=== PATIENT | female | born 1965 | race Caucasian/White ===

== ENCOUNTER 2019-04-25 12:56 | Outpatient (CLI) | payer OTHER, SELFPAY ==
--- NOTE | 2019-04-25 13:02 | MM_ITS ---
WS: [id number] BILATERAL DIGITAL SCREENING MAMMOGRAPHY WITH CAD CLINICAL INFORMATION: SCREENING HISTORY: Screening mammogram. No current complaints. COMPARISON: October 27, 2017 TECHNIQUE: Bilateral CC and MLO views. FINDINGS: Scattered fibroglandular densities bilaterally. No suspicious focal mass, asymmetry, calcifications, or architectural distortion. No evidence of malignancy. MM/[place] [id number] IMPRESSION: BI-RADS: 1-Negative FOLLOW UP: 1 Year Follow-up Recommend return to annual screening mammography.
== END 2019-04-25 12:57 | disposition home or self-care (01) ==
LOC: RADSHAW 13:01
PROVIDERS: PCP Family Medicine; Visit Provider Nurse Practitioner Women's Health
DX: Z12.31 Encounter for screening mammogram for malignant neoplasm of breast (principal)
CPT/HCPCS: 77067

== ENCOUNTER 2020-09-04 10:11 | Outpatient (CLI) | payer OTHER, SELFPAY ==
--- NOTE | 2020-09-04 10:15 | MM_ITS ---
WS: [id number] BILATERAL DIGITAL SCREENING MAMMOGRAPHY WITH CAD CLINICAL INFORMATION: Z12.39 - Encounter for other screening for malignant neop... HISTORY: Screening mammogram. No current complaints. COMPARISON: April 25, 2019 TECHNIQUE: Bilateral CC and MLO views. FINDINGS: Scattered fibroglandular densities bilaterally. No suspicious focal mass, asymmetry, calcifications, or architectural distortion. No evidence of malignancy. MM/[place] [id number] IMPRESSION: BI-RADS: 1-Negative FOLLOW UP: 1 Year Follow-up Recommend return to annual screening mammography.
== END 2020-09-04 10:12 | disposition home or self-care (01) ==
LOC: RADSHAW 10:14
PROVIDERS: PCP Family Medicine; Visit Provider Nurse Practitioner Women's Health
DX: Z12.31 Encounter for screening mammogram for malignant neoplasm of breast (principal)
CPT/HCPCS: 77067

== ENCOUNTER 2021-03-31 10:28 | Outpatient (CLI) | payer OTHER, SELFPAY ==
--- NOTE | 2021-03-31 10:34 | XR_ITS ---
WS: [id number] Calcaneus, 2 views, 03/31/2021 Clinical Data: HEEL PAIN, LEFT Comparison: None. Findings: There are no fractures or dislocations. There is no bone destruction or erosion. The soft tissues are normal. There is a plantar spur. XR/XR calcaneus LT min 2V [id number] Impression: Negative left calcaneus.
== END 2021-03-31 10:29 | disposition home or self-care (01) ==
PROVIDERS: PCP Family Medicine; Visit Provider Family Medicine
DX: M79.672 Pain in left foot (principal)
CPT/HCPCS: 73650

== ENCOUNTER 2021-05-22 10:46 | Observation (INO) | payer OTHER, SELFPAY ==
[2021-05-22] VITALS (8 sets, daily range): BP systolic 118–154; BP diastolic 68–93; PULSE 62–75; RESP 15–16; TEMP 36.8; O2SAT 96–99; BMI 29.2
--- NOTE | 2021-05-22 11:08 | XR_ITS ---
WS: [id number] XR chest 1V portable [id number] REASON FOR EXAM: chest pain FINDINGS: The heart and the mediastinum are within normal limits. Calcified granulomatous disease in both hemithoraces. No active pulmonary parenchymal or pleural disease is identified. Mild to moderate degenerative spondylosis in the mid and lower thoracic spine. XR/XR chest 1V portable [id number] IMPRESSION: No acute chest abnormality.
--- NOTE | 2021-05-22 11:09 | ECG_ITS ---
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 Measurements Intervals [place] Rate: 71 P: -9 TX: 134 QRS: -17 QRSD: 89 T: 8 QT: 386 QTc: 420 Interpretive Statements SINUS RHYTHM LEFT VENTRICULAR HYPERTROPHY AND ST-T CHANGE [VOLTAGE CRITERIA PLUS ST/T ABNORMALITY] No previous ECG available for comparison Electronically Signed On 05-22-2021 16:02:07 CDT by Bud Calabrese M.D. [id number]
--- NOTE | 2021-05-22 11:11 | W.ED.CHESTPA ---
HPI - Chest Pain General: Chief Complaint: Chest Pain Stated Complaint: chest pain/left side pain/high BP/nausea Time Seen by Provider: 05/22/21 11:11 History of Present Illness: Ms. Woodall is a 55-year-old lady without known cardiac history who presents to the emergency department due to chest pain. She reports sitting at work when symptoms started. 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 She describes pressure or dull pain in the left anterior chest that radiates to the back and on the left arm with left shoulder involvement. She had associated diaphoresis, nausea, and generalized malaise. Intensity of symptoms is moderate. Discomfort is still present. Course has persisted. She has had similar episodes in the past but they typically pass after an hour or so. She does have positive family history including father who at 52 and younger sibling who have had heart attacks. No other specific changes in health, exacerbating, or alleviating factors identified. Onset (ago): minute(s) Timing of current episode: constant Prior episodes: Yes Onset: during rest Pain location: left chest Pain radiation: left arm, back and left shoulder Severity: moderate Quality: dull and other Relieving factors: nothing Exacerbating factors: nothing Associated symptoms: Reports diaphoresis, dyspnea, nausea and other Review of Systems General: Reports: 10 or more systems reviewed and unremarkable except in HPI and below Const: Reports: diaphoresis Resp: Reports: dyspnea GI: Reports: nausea PFSH ED PFSH: Medical History Fibroadenoma of left breast IBS (irritable bowel syndrome) Never actually diagnosed with IBS the symptoms are somewhat consistent No pertinent past medical history Neg. hx: HTN, DM, DVT/PE PCP: Dr. Perez Thyroid nodule Confirmed nodule- benign/stable 09/2015 Surgical History History of appendectomy 1979 History of delivery 1.>06/20/84: Performed in [place], [place] 2.>05/06/87: Performed at [facility] in [place], [place] 3.>08/08/89: Had tubal ligation at time of . Performed at [facility] in [place], [place] History of laparoscopy 1999 - Performed by Dr. Castañeda for evaluation of pelvic pain History of tubal ligation 08/08/89 - Performed at time of section. Family History Grandfather CAD (coronary artery disease) Diabetes Stroke Father CAD (coronary artery disease) Brother CAD (coronary artery disease) Myocardial infarction Stroke Mother Cancer Breast cancer: Dx'd at age 54, unsure if hormone receptive Ovarian cancer: Dx'd at age 29. Family/Other Cancer Maternal uncle: Colon cancer Stroke Uncle and Aunt Grandmother Diabetes Stroke Denies family history of Clotting disorder Dementia Hyperlipidemia Psychiatric illness Chronic kidney disease (CKD) Suicide Anesthesia complication Bleeding disorder Family history of premature coronary artery disease Lung disease Hypertension Social History Smoking and tobacco status: never smoked Alcohol intake: current Alcohol intake frequency: few times a week Substance/Drug Use: never Physical Exam Const: COMMON NORMALS: alert GENERAL APPEARANCE: cooperative, well developed and ill appearing (Mildly) HENMT: COMMON NORMALS: normocephalic and atraumatic HEAD & SCALP: normocephalic and atraumatic Eye: COMMON NORMALS: conjunctivae normal CONJUNCTIVA: Yes conjunctivae normal SCLERA: sclerae normal Neck/C-Spine: COMMON NORMALS: supple GENERAL: Yes trachea midline Resp: COMMON NORMALS: normal respiratory effort EFFORT & INSPECTION: Yes able to speak in complete sentences Cardio: COMMON NORMALS: regular rate and regular rhythm RATE: regular rate RHYTHM: regular rhythm GI: COMMON NORMALS: Soft to palpation PALPATION: Yes Soft to palpation and No Tenderness to palpation present (GI) PERCUSSION: normal to percussion Extremity: GENERAL: Yes normal exam except as noted and No edema Neuro: COMMON NORMALS: moves all extremities SENSORIUM/ORIENTATION: Yes alert and No Orientation impaired Psych: COMMON NORMALS: mental status grossly normal and Normal thought process present THOUGHT PROCESS: Normal thought process present Course ED course: - Patient was seen and evaluated by me at bedside - Patient placed on cardiac monitors, IV access obtained - Initial evaluation notable for exam as above - Labs and xrays personally interpreted by me. EKGs at 1115, 1304, and 1709 personally interpreted by me. Sinus rhythm with nonspecific ST segment abnormalities. No STEMI. -Aspirin, antiemetic, other symptom treatment and fluids ordered. - Labs notable for no leukocytosis, normal hemoglobin. Metabolic panel with mild hyponatremia and hypokalemia, replenishment ordered. Delta troponin negative. - Imaging notable for no lobar consolidation or pneumothorax. - Upon serial reexamination after treatment the patient was similar. - Based on patient history, evaluation, and testing as interpreted the most likely cause of the patient's condition is chest pain and other symptoms of unclear etiology. - The results of ED evaluation were discussed with the patient including possible disposition options. Patient is moderate risk by heart score with concerning family history. She preferred inpatient evaluation even after discussion of possibility of no stress test on Tuesday. - Admitting service was contacted and Dr Foote with the hospitalist service agreed to admit the patient - Patient was admitted without further deterioration or significant events. Note: Click bubbles or prepopulated sifuentes in note writing are used for assistance with data collection and billing and are inherently more limited than narrative and other text portions of this note. Please use narrative for additional clinical history and defer to narrative/free test for any case of contradictory information. If information appears in only free text or click bubble it should be considered present or absent as reported. Please contact note resume writer for clarifications of clinical information or contradictory information. MDM is a brief summary, contradictory or erroneous seeming information should be clarified and full note should be reviewed. Vital Signs: Vital signs: Vital Signs Temperature 97.6 F 05/23/21 07:26 Pulse Rate 70 05/23/21 07:26 Respiratory Rate 18 05/23/21 07:26 Blood Pressure 118/70 05/23/21 07:26 Pulse Oximetry 96 05/23/21 07:26 MDM - Chest Pain Medical Decision Making 55-year-old lady with significant positive family history for cardiac disease and early cardiac presenting with chest pain and episodic associated cardiac symptoms. Negative troponin and EKG in the emergency department. No clear explanation for symptoms. Patient moderate risk by heart score and offered various disposition options, admitted for further cardiac evaluation. Medical Records I reviewed the patient's medical records. Lab Data I reviewed the patient's lab results. : 05/23/21 05:05 05/23/21 05:05 Radiology Impressions Chest X-Ray 05/22/21 11:08 IMPRESSION: No acute chest abnormality. Laboratory Results WBC 7.0 10^3/uL (4.0-10.0) 05/22/21 11:19 RBC 4.62 10^6/uL (4.1-5.3) 05/22/21 11:19 Hgb 14.0 g/dL (11.5-15.3) 05/22/21 11:19 Hct 42.0 % (37.0-47.0) 05/22/21 11:19 MCV 90.9 fl (81-99) 05/22/21 11:19 MCH 30.3 pg (28.0-34.0) 05/22/21 11:19 MCHC 33.3 g/dL (30.0-36.0) 05/22/21 11:19 RDW 13.4 % (12.1-15.1) 05/22/21 11:19 Plt Count 289 10^3/cmm (130-400) 05/22/21 11:19 MPV 9.0 fL (7.4-10.4) 05/22/21 11:19 Neut % (Auto) 49.9 % 05/22/21 11:19 Lymph % (Auto) 39.0 % 05/22/21 11:19 Hubbard % (Auto) 8.1 % 05/22/21 11:19 Eos % (Auto) 1.9 % 05/22/21 11:19 Baso % (Auto) 0.7 % 05/22/21 11:19 Neut # (Auto) 3.50 10^3/uL (1.8-7.7) 05/22/21 11:19 Lymph # (Auto) 2.7 10^3/uL (0.8-4.8) 05/22/21 11:19 Hubbard # (Auto) 0.6 10^3/uL (0.2-0.9) 05/22/21 11:19 Eos # (Auto) 0.1 10^3/uL (0.0-0.8) 05/22/21 11:19 Baso # (Auto) 0.1 10^3/uL (0.0-0.1) 05/22/21 11:19 Nucleated RBC % (auto) 0 % 05/22/21 11:19 Nucleated RBCs # 0.0 /100WBC 05/22/21 11:19 Sodium 133 mmol/L (136-145) L 05/22/21 11:19 Potassium 3.3 mmol/L (3.5-5.1) L 05/22/21 11:19 Chloride 98 mmol/L (98-107) 05/22/21 11:19 Carbon Dioxide 24 mmol/L (22-29) 05/22/21 11:19 Anion Gap 14.3 (5-19) 05/22/21 11:19 BUN 16 mg/dL (6-20) 05/22/21 11:19 Creatinine 0.6 mg/dL (0.5-0.9) 05/22/21 11:19 GFR Calculation 104.2 mL/min (90-130) 05/22/21 11:19 Glucose 100 mg/dL (65-115) 05/22/21 11:19 Estimat Average Glucose 123 05/22/21 11:19 Hemoglobin A1c 5.9 % (4.0-6.0) 05/22/21 11:19 Calculated Osmolality 277 mOsm/kg (285-295) L 05/22/21 11:19 Calcium 9.9 mg/dL (8.5-10.5) 05/22/21 11:19 Magnesium 2.2 mg/dL (1.7-2.3) 05/22/21 11:19 Total Bilirubin 0.4 mg/dL (0.15-1.2) 05/22/21 11:19 AST 26 U/L (0-32) 05/22/21 11:19 ALT 14 U/L (0-33) 05/22/21 11:19 Alkaline Phosphatase 76 IU/L (35-105) 05/22/21 11:19 Troponin T Baseline 6 ng/L (0-10) 05/22/21 11:19 Troponin T 120 Minute 6.76 ng/L (0-10) 05/22/21 13:07 Delta Troponin T 0.76 ABS# (0-10) 05/22/21 13:07 Troponin T Hi Sens 6Hr 6.76 ng/L (0-10) 05/22/21 15:47 Troponin T Hi Sens 6Hr Delta 0.76 ng/L (0-12) 05/22/21 15:47 Total Protein 8.7 g/dL (6.6-8.7) 05/22/21 11:19 Albumin 5.0 g/dL (3.5-5.2) 05/22/21 11:19 Globulin 3.7 g/dL (1.3-4.6) 05/22/21 11:19 Lipase 19 U/L (13-60) 05/22/21 11:19 TSH 2.40 uIU/mL (0.27-4.20) 05/22/21 11:19 Discharge Plan Discharge Patient Disposition: Placed in Observation Admit Provider: Giovanni Foote Clinical Impression: Chest pain Discharge Activity: Resume usual activity Coding Level of Care Code ED Superintendent [employer] for Chg Fwd Exam Comprehensive
[2021-05-22] MEDS: aspirin 81 mg Chew Tablet 324 MG PO (11:14)
[2021-05-22] MEDS: ondansetron 2 mg/ML SDV 2 mL 4 MG IVP (11:14)
[2021-05-22 11:30] LABS: Basophils # 0.1 10^3/uL (0.0-0.1); Basophils % 0.7 %; Eosinophils # 0.1 10^3/uL (0.0-0.8); Eosinophils % 1.9 %; Lymphocytes # 2.7 10^3/uL (0.8-4.8); Mean Corpuscular HGB Conc 33.3 g/dL (30.0-36.0); Mean Corpuscular Hemoglobin 30.3 pg (28.0-34.0); Mean Corpuscular Volume 90.9 fl (81-99); Monocytes # 0.6 10^3/uL (0.2-0.9); Monocytes % 8.1 %; Neutrophils % 49.9 %; Nucleated Red Blood Cells % 0 %; Platelet Count 289 10^3/cmm (130-400); Red Blood Count 4.62 10^6/uL (4.1-5.3); Red Cell Distribution Width 13.4 % (12.1-15.1)
[2021-05-22 11:54] LABS: Troponin(5th) Baseline 6 ng/L (0-10)
[2021-05-22 12:02] LABS: Alanine Aminotransferase 14 U/L (0-33); Alkaline Phosphatase 76 IU/L (35-105); Anion Gap 14.3 (5-19); Aspartate Amino Transferase 26 U/L (0-32); Blood Urea Nitrogen 16 mg/dL (6-20); Calcium 9.9 mg/dL (8.5-10.5); Carbon Dioxide 24 mmol/L (22-29); Chloride 98 mmol/L (98-107); Globulin 3.7 g/dL (1.3-4.6); Glomerular Filtration Rate 104.2 mL/min (90-130); Glucose 100 mg/dL (65-115); Lipase 19 U/L (13-60); Osmolality Calculated 277 mOsm/kg (285-295); Potassium 3.3 mmol/L (3.5-5.1); Sodium 133 mmol/L (136-145); Total Bilirubin 0.4 mg/dL (0.15-1.2); Total Protein 8.7 g/dL (6.6-8.7)
[2021-05-22] MEDS: lidocaine 2% viscous 15 ML, aluminum-mag hydrox-simethicon 30 ML, sucralfate oral liq 1 GM PO (12:03)
[2021-05-22 12:35] LABS: Magnesium 2.2 mg/dL (1.7-2.3)
[2021-05-22] MEDS: potassium chloride oral liq 20 mEq/15 mL UDC 40 MEQ PO (12:35)
[2021-05-22] MEDS: sodium chloride 0.9% 1,000 ML 999 ML IV (12:52)
--- NOTE | 2021-05-22 13:09 | ECG_ITS ---
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 Measurements Intervals [place] Rate: 63 P: 59 VA: 137 QRS: 79 QRSD: 86 T: 64 QT: 396 QTc: 408 Interpretive Statements SINUS RHYTHM Compared to ECG 05/22/2021 11:15:30 Left ventricular hypertrophy no longer present ST (T wave) deviation no longer present Electronically Signed On 05-22-2021 16:06:00 CDT by Bud Calabrese M.D. [id number]
[2021-05-22 13:31] LABS: Troponin 5 2HR 6.76 ng/L (0-10)
[2021-05-22 13:39] LABS: Troponin 5 2HR Delta 0.76 ABS# (0-10)
[2021-05-22 16:17] LABS: Troponin 5 6HR 6.76 ng/L (0-10)
[2021-05-22 16:27] LABS: Troponin 5 6HR Delta 0.76 ng/L (0-12)
--- NOTE | 2021-05-22 17:09 | ECG_ITS ---
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 Measurements Intervals [place] Rate: 78 P: 71 TX: 138 QRS: 79 QRSD: 86 T: 69 QT: 386 QTc: 440 Interpretive Statements SINUS RHYTHM NONSPECIFIC ST & T-WAVE ABNORMALITY Compared to ECG 05/22/2021 13:04:10 T-wave abnormality now present Electronically Signed On 05-22-2021 22:43:25 CDT by uBd Calabrese M.D. [id number]
--- NOTE | 2021-05-22 17:53 | P.HP_ITS ---
Providers/Chief Complaint Admitting Physician: Giovanni Foote MD Primary Care Provider: Riccardo Perez MD Chief Complaint: chest pain/left side pain/high BP/nausea History of Present Illness Trang Woodall is a 55 year old female with a past medical history of anxiety, who presents [facility] for chest pain. Patient tells me that she has had a few months of progressive chest pain, worsening intensity, becoming more frequent. Chest pain is typically left-sided, substernal, pressure-like pain, lasting a few seconds, radiating to the left neck, down the left arm, a ssociate with palpitations, diaphoresis. No shortness of breath, no cardiac history. Does have an extensive family history of CAD in her brother in his 50s and her father who in his 50s with CAD. In the emergency room she was found to have no significant delta on home clonidine, EKG did show subtle T wave versions in inferior leads. No recurrent chest pain in the emergency room, hospitalist team was called for admission Review of Systems Const: Denies: fever(s), chills, fatigue or malaise Eyes: Denies: change in vision or blurry vision ENMT: Denies: nasal congestion Resp: Denies: dyspnea, productive cough, non-productive cough or wheezing GI: Denies: abdominal pain, nausea, vomiting, hematemesis or diarrhea : Denies: flank pain, dysuria or urinary frequency Musc: Denies: neck pain or back pain Skin/Breast: Denies: rash Neuro: Denies: headache(s), dizziness or vertigo Endo: Denies: polyuria or polydipsia Medications/Allergies Home Medications Medication Instructions Recorded Confirmed Last Taken Type acidophilus 100 million 1 cap PO DAILY 05/22/21 05/22/21 Unknown History cell-pectin, citrus 10 mg capsule alprazolam 0.25 mg tablet 0.25 mg PO BID PRN 05/22/21 05/22/21 Unknown History biotin 1 tab PO DAILY 05/22/21 05/22/21 Unknown History cholecalciferol (vitamin D3) 25 25 mcg PO DAILY 05/22/21 05/22/21 Unknown History mcg (1,000 unit) capsule (Vitamin D3) magnesium citrate 1 cap PO DAILY 05/22/21 05/22/21 Unknown History ondansetron HCl 4 mg tablet 4 mg PO Q4H PRN 05/22/21 05/22/21 Unknown History Allergies Allergy/AdvReac Type Severity Reaction Status Date / Time meperidine [From Demerol] Allergy vomiting Verified 05/22/21 11:35 Penicillins Allergy Thick Verified 05/22/21 11:35 peeling rash PFSH Acute PFSH: Medical History Fibroadenoma of left breast IBS (irritable bowel syndrome) Never actually diagnosed with IBS the symptoms are somewhat consistent No pertinent past medical history Neg. hx: HTN, DM, DVT/PE PCP: Dr. Perez Thyroid nodule Confirmed nodule- benign/stable 09/2015 Surgical History History of appendectomy 1979 History of delivery 1.>06/20/84: Performed in [place], [place] 2.>05/06/87: Performed at [facility] in [place], [place] 3.>08/08/89: Had tubal ligation at time of . Performed at [facility] [place] [facility] in [place], [place] History of laparoscopy 1999 - Performed by Dr. Castañeda for evaluation of pelvic pain History of tubal ligation 08/08/89 - Performed at time of section. Family History Grandfather CAD (coronary artery disease) Diabetes Stroke Father CAD (coronary artery disease) Brother CAD (coronary artery disease) Myocardial infarction Stroke Mother Cancer Breast cancer: Dx'd at age 54, unsure if hormone receptive Ovarian cancer: Dx'd at age 29. Family/Other Cancer Maternal uncle: Colon cancer Stroke Uncle and Aunt Grandmother Diabetes Stroke Denies family history of Clotting disorder Dementia Hyperlipidemia Psychiatric illness Chronic kidney disease (CKD) Suicide Anesthesia complication Bleeding disorder Family history of premature coronary artery disease Lung disease Hypertension Social History (Updated 05/22/21 @ 17:55 by Giovanni Foote MD) Smoking and tobacco status: never smoked Alcohol intake: current Alcohol intake frequency: few times a week Substance/Drug Use: never Vitals/I&O/Wt Last Vital Signs Temp 98.3 F 05/22/21 11:00 Pulse 62 05/22/21 13:56 Resp 15 05/22/21 13:56 BP 119/76 05/22/21 13:56 Pulse Ox 97 05/22/21 13:56 Weight last 48 hrs Weight 72.575 kg Physical Exam Const: COMMON NORMALS: no acute distress and patient oriented x3 HENMT: COMMON NORMALS: normocephalic HEAD & SCALP: normocephalic Eye: COMMON NORMALS: Equal, round and reactive pupils present Neck/C-Spine: COMMON NORMALS: no JVD Lymph: LYMPHATIC: no lymphadenopathy noted Resp: COMMON NORMALS: normal respiratory effort, No retractions, No use of accessory muscles and clear to auscultation bilaterally AUSCULTATION: clear to auscultation bilaterally Cardio: COMMON NORMALS: no JVD, regular rate, regular rhythm, S1 normal heart sound present and S2 normal heart sound present RATE: regular rate RHYTHM: regular rhythm HEART SOUNDS: S1 normal heart sound present and S2 normal heart sound present GI: COMMON NORMALS: Normal to inspection, nondistended, normoactive bowel sounds present, Soft to palpation, non-tender, No hepatosplenomegaly present, no masses and no bruits PALPATION: Yes Soft to palpation and Yes No hepatosplenomegaly present Extremity: COMMON NORMALS: capillary refill normal, no clubbing, cyanosis or edema, no calf tenderness and no pedal edema Neuro: COMMON NORMALS: patient oriented x3 Psych: COMMON NORMALS: mental status grossly normal Data : 05/22/21 11:19 05/22/21 11:19 A&P Assessment and plan (1) Chest pain: -EKG does show T wave inversions inferior leads, no significant delta troponin -Lipid panel ordered -TSH within normal limits, A1c ordered mag within normal limits -Telemetry monitoring -Cardiac echo -Aspirin, statin -Nitro as needed for chest pain -We will consider outpatient was inpatient stress testing -Full code -Lovenox for DVT prophylaxis Status: Acute Attestations Medical Necessity Statement*: Patient requires hospitalization, outpatient with observation for chest pain Coding Level of Care Code Acute Wood Heel Back Liner for Sfoi Mercado Diagnoses Chest pain R07.9
--- NOTE | 2021-05-22 17:53 | USCV_ITS ---
Trang Woodall Age: 55 Gender: F : 1965 Exam Date: 05/22/2021 21:34 Ordering Phys: Giovanni Foote MD Technologist: Jude Good Exam Location: [facility] Indication: chest pain/ left side pain/ high bp/ nausea BP: 118 / 68 HR: 65 Rhythm: Sinus Technical Quality: Adequate MEASUREMENTS (Male / Female) Normal Values 2D ECHO LV Diastolic Diameter PLAX 3.1 cm 4.2 - 5.9 / 3.9 - 5.3 cm LV Systolic Diameter PLAX 1.6 cm IVS Diastolic Thickness 1.8 cm 0.6 - 1.0 / 0.6 - 0.9 cm IVS Systolic Thickness 1.7 cm LVPW Diastolic Thickness 1.5 cm 0.6 - 1.0 / 0.6 - 0.9 cm LVPW Systolic Thickness 2.2 cm LVOT Diameter 2.0 cm LV Ejection Fraction 2D Teich 76.1 % LV Ejection Fraction MOD 2C 65.8 % LV Ejection Fraction 2C AL 68.7 % LA Diameter 2.3 cm LA Width 3.1 cm LA Height 3.6 cm Aorta at Sinotubular Diameter 2.4 cm M-MODE Aortic Annulus Diameter 2.7 cm LA Ao Ratio MM 0.8 MV E Point Septal Separation 0.6 cm DOPPLER AV Peak Velocity 106.0 cm/s LVOT Peak Velocity 71.0 cm/s AV Area Cont Eq vti 2.9 cm squared AV Area Cont Eq pk 2.1 cm squared MV Area PHT 2.5 cm squared Mitral E to A Ratio 2.1 MV E' Velocity 66.5 cm/s Mitral E to MV E' Ratio 8.9 Mitral E to LV E' Lateral Ratio 7.5 Mitral E to LV E' Septal Ratio 11.0 TR Peak Velocity 91.6 cm/s TR Peak Gradient 3.4 mmHg TR Mean Velocity 59.4 cm/s TR Mean Gradient 1.6 mmHg TR Velocity Time Integral 19.1 cm Right Atrial Pressure 3.0 mmHg Pulmonary Artery Systolic Pressu 6.4 mmHg PV Peak Velocity 77.0 cm/s FINDINGS Left Ventricle Normal left ventricular size and systolic function, EF 66 %. No regional wall motion abnormalities. Right Ventricle The right ventricle is normal in size and function. Right Atrium The right atrium is normal in size. Left Atrium The left atrium is normal in size. Mitral Valve Thickened mitral valve. Trace mitral valve regurgitation. Aortic Valve No gross abnormalities noted Tricuspid Valve No gross abnormalities noted Pulmonic Valve Pulmonic valve not well visualized. Pericardium Normal pericardium without effusion. Aorta Normal ascending aorta dimension. CONCLUSIONS Normal left ventricular size and systolic function, EF 66 %. No regional wall motion abnormalities. Thickened mitral valve. Trace mitral valve regurgitation. Normal cardiac chamber sizes There is no pericardial effusion. There are no intracardiac masses. No similar previous study is available for comparison. Dr Marie Zapata MD FAC (Electronically Signed) Final Date: 23 May 2021 10:44 S
[2021-05-22] MEDS: famotidine 20 mg Tablet PO (18:24)
[2021-05-22] MEDS: enoxaparin 40 mg/0.4 mL Syringe SUBCUT (18:24)
[2021-05-22 19:57] LABS: Estmated Average Glucose 123; Hemoglobin A1C 5.9 % (4.0-6.0)
[2021-05-22] MEDS: atorvastatin 40 mg Tablet PO (20:14)
[2021-05-23] VITALS: BP 100/61; PULSE 63; RESP 17; TEMP 36.4; O2SAT 96
[2021-05-23 03:51] VITALS: PULSE 62
[2021-05-23 04:00] VITALS: BP 100/67; PULSE 69; RESP 18; TEMP 36.5; O2SAT 98
[2021-05-23] MEDS: acetaminophen 325 mg Tablet 650 MG PO (04:10)
[2021-05-23 05:20] LABS: Basophils % 0.6 %; Eosinophils # 0.2 10^3/uL (0.0-0.8); Eosinophils % 3.1 %; Hematocrit 36.9 % (37.0-47.0); Hemoglobin 12.3 g/dL (11.5-15.3); Lymphocytes # 2.1 10^3/uL (0.8-4.8); Lymphocytes % 41.3 %; Mean Corpuscular HGB Conc 33.3 g/dL (30.0-36.0); Mean Corpuscular Hemoglobin 30.6 pg (28.0-34.0); Mean Corpuscular Volume 91.8 fl (81-99); Monocytes # 0.5 10^3/uL (0.2-0.9); Neutrophils # 2.33 10^3/uL (1.8-7.7); Neutrophils % 45.8 %; Nucleated Red Blood Cells % 0 %; Platelet Count 248 10^3/cmm (130-400); Red Blood Count 4.02 10^6/uL (4.1-5.3); Red Cell Distribution Width 13.6 % (12.1-15.1); White Blood Count 5.1 10^3/uL (4.0-10.0)
[2021-05-23 05:42] LABS: Alanine Aminotransferase 11 U/L (0-33); Alkaline Phosphatase 63 IU/L (35-105); Anion Gap 11.4 (5-19); Aspartate Amino Transferase 19 U/L (0-32); Blood Urea Nitrogen 14 mg/dL (6-20); Calcium 9.1 mg/dL (8.5-10.5); Carbon Dioxide 24 mmol/L (22-29); Chloride 104 mmol/L (98-107); Globulin 2.5 g/dL (1.3-4.6); Glomerular Filtration Rate 87.2 mL/min (90-130); Glucose 111 mg/dL (65-115); Magnesium 2.4 mg/dL (1.7-2.3); Osmolality Calculated 281 mOsm/kg (285-295); Phosphorus 3.8 mg/dL (2.5-4.5); Potassium 4.4 mmol/L (3.5-5.1); Sodium 135 mmol/L (136-145); Total Bilirubin 0.4 mg/dL (0.15-1.2); Total Protein 6.5 g/dL (6.6-8.7)
[2021-05-23 05:44] LABS: Chol HDL Ratio 3.15 mg/dL (0.0-4.40); Cholesterol 186 mg/dL (0-200); HDL Cholesterol 59 mg/dL (60-100); LDL Cholesterol Calculated 117 mg/dL (50-129); LDL HDL Ratio 1.98 RATIO (0.00-3.22); Triglycerides 49 mg/dL (0-150)
[2021-05-23 07:26] VITALS: BP 118/70; PULSE 70; RESP 18; TEMP 36.4; O2SAT 96
[2021-05-23] MEDS: aspirin 81 mg EC Tablet PO (07:55)
--- NOTE | 2021-05-23 09:41 | P.PN_ITS ---
Subjective Subjective: Patient was seen this morning, she continued to complain of anterior chest pain this morning, pressure-like pain, she also had pain radiating to her back, no nausea, no vomiting Vitals/I&O/Wt Last Vital Signs Temp 97.6 F 05/23/21 07:26 Pulse 70 05/23/21 07:26 Resp 18 05/23/21 07:26 BP 118/70 05/23/21 07:26 Pulse Ox 96 05/23/21 07:26 05/22/21 05/23/21 05/23/21 22:59 06:59 14:59 Intake Total 1240 / 1240 900 / 2140 Output Total 0 / 0 Balance 1240 / 1240 900 / 2140 Weight last 48 hrs Weight 73.936 kg Weight 72.575 kg Weight 72.575 kg Physical Exam Const: COMMON NORMALS: no acute distress and patient oriented x3 Resp: COMMON NORMALS: normal respiratory effort, No retractions, No use of accessory muscles and clear to auscultation bilaterally AUSCULTATION: clear to auscultation bilaterally Cardio: COMMON NORMALS: regular rate, regular rhythm, S1 normal heart sound present and S2 normal heart sound present RATE: regular rate RHYTHM: regular rhythm HEART SOUNDS: S1 normal heart sound present and S2 normal heart sound present GI: COMMON NORMALS: Normal to inspection, nondistended, normoactive bowel sounds present, Soft to palpation, non-tender and No hepatosplenomegaly present PALPATION: Yes Soft to palpation and Yes No hepatosplenomegaly present Extremity: COMMON NORMALS: no pedal edema Neuro: COMMON NORMALS: patient oriented x3 Psych: COMMON NORMALS: mental status grossly normal Data : 05/23/21 05:05 05/23/21 05:05 A&P Assessment and plan (1) Chest pain: -Episodes of chest pain overnight -EKG does show T wave inversions inferior leads, no significant delta troponin -Lipid panel triglycerides 49, cholesterol 186, LDL 117, HDL 59 -TSH within normal limits, A1c 5.9, mag within normal limits -Telemetry monitoring -Cardiac echo pending -Aspirin, statin -Nitro as needed for chest pain -We will discuss with cardiology service -Full code -Lovenox for DVT prophylaxis Status: Acute Attestations Medical Necessity Statement*: Patient requires hospitalization for chest pain Coding Level of Care Code Acute Assistant Press Operator for Chg Fwd Diagnoses Chest pain R07.9
--- NOTE | 2021-05-23 10:10 | P.CONIM_ITS ---
Providers/Reason For Consult Consulting Physician/Specialty*: DR SANTIAGO SANCHEZ/ Cardiology Reason for Consult*: Chest pain/family history of coronary artery disease Requesting Physician: Dr Foote Attending Physician: Giovanni Foote MD Primary Care Provider: Riccardo Perez MD History of Present Illness History of Present Illness Trang Woodall is a 55 year old female, with no significant past medical history, but with a strong family history for premature atherosclerotic heart disease is presenting with complaints of chest pain and palpitations. Cardiology consult is requested for further cardiac evaluation recommendations. 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 This was followed by a tight feeling in the chest, radiated to the back, to the neck and to the left shoulder. She felt nauseous, sweaty and somewhat short of breath. She had 1 bout of vomiting. Her chest discomfort and palpitation persisted with some waxing and waning. The symptom was moderate to severe in intensity. She also gets tunnel vision with these spells. Patient apparently has been having several episodes intermittently for the last 4 years or so. However for the last few months, these episodes becoming more frequent and more severe. Yesterday her symptoms were lasting longer than usual and also was found to be associated with an elevated blood pressure in the 170s(apparently she never had high blood pressure. Yesterday was the first time that she checked her blood pressure while having the symptoms). For these reasons, she was brought to the emergency room. Her symptoms gradually subsided. Since the hospital admission, she has not had any recurrence of the symptoms. Usually these episodes last for 2 to 3 hours. This is followed by extreme weakness. According the patient, almost always she starts having the palpitations, followed by chest pain/tightness. The patient seems to think that the symptoms could be related to anxiety/panic attacks. She has been under a lot of stress at home taking care of her sister's children. She takes Zofran for the nausea as prescribed by the primary care provider. Otherwise she has not been taking her medications. Yesterday she was at work and her friend insisted her to go to the hospital. Patient has no history for coronary artery disease, myocardial infarction or congestive heart failure. Her brother in his 40s heart had heart attack and stroke. He also is known to have atrial fibrillation. Her father of a massive CO at age of 52. Many of maternal uncles had heart problems in the 60s. Her grandfather had a heart attack at the age of 64. No history for any smoking abuse, alcohol abuse or any substance abuse. Review of Systems Narrative: CONSTITUTIONAL: No fever or chills. Undergoing a lot of stress at home. EYES: No blurring of vision or other visual disturbances lately. ENT: No hoarseness of voice, auditory disturbances or sore throat. CARDIOVASCULAR: As mentioned above. RESPIRATORY: No significant cough. GASTROINTESTINAL: No hematemesis or melena. Is also nausea and stomach discomfort as mentioned above GENITOURINARY: No dysuria or hematuria. INTEGUMENTARY: No skin rashes or history of skin cancer. NEURO: No transient ischemic attacks or amaurosis. She gets tunnel vision/dizziness with these spells PSYCHIATRIC: No history of psychosis or major depression. HEMATOLOGIC: No bleeding disorders or significant anemia. ENDOCRINE: No history of polyuria or polydipsia. MUSCULOSKELETAL: No recent joint pain or swelling. ALLERGY/IMMUNOLOGY: As mentioned above. Medications/Allergies Home Medications Medication Instructions Recorded Confirmed Last Taken Type acidophilus 100 million 1 cap PO DAILY 05/22/21 05/22/21 Unknown History cell-pectin, citrus 10 mg capsule alprazolam 0.25 mg tablet 0.25 mg PO BID PRN 05/22/21 05/22/21 Unknown History biotin 1 tab PO DAILY 05/22/21 05/22/21 Unknown History cholecalciferol (vitamin D3) 25 25 mcg PO DAILY 05/22/21 05/22/21 Unknown History mcg (1,000 unit) capsule (Vitamin D3) magnesium citrate 1 cap PO DAILY 05/22/21 05/22/21 Unknown History ondansetron HCl 4 mg tablet 4 mg PO Q4H PRN 05/22/21 05/22/21 Unknown History aspirin 81 mg tablet,delayed 81 mg PO DAILY 30 Days #30 tab 05/23/21 Unknown Rx release atorvastatin 40 mg tablet 40 mg PO BEDTIME 30 Days #30 tab 05/23/21 Unknown Rx nitroglycerin 0.4 mg sublingual 0.4 mg SUBLINGUAL Q5M PRN 30 Days 05/23/21 Unknown Rx tablet #30 tab Allergies Allergy/AdvReac Type Severity Reaction Status Date / Time meperidine [From Demerol] Allergy vomiting Verified 05/22/21 11:35 Penicillins Allergy Thick Verified 05/22/21 11:35 peeling rash Current Medications Generic Name Dose Route Start Last Admin Trade Name Freq PRN Reason Stop Dose Admin Acetaminophen 650 mg 05/22/21 17:53 05/23/21 04:10 Acetaminophen 325 Mg Tablet PO 650 mg Q6H PRN Administration Mild/Mod Pain Or Temp >/= 101 Aspirin 81 mg 05/23/21 09:00 05/23/21 07:55 Aspirin 81 Mg Ec Tablet PO 81 mg DAILY PILY Administration Atorvastatin Calcium 40 mg 05/22/21 21:00 05/22/21 20:14 Atorvastatin 40 Mg Tablet PO 40 mg BEDTIME PILY Administration Enoxaparin Sodium 40 mg 05/22/21 18:00 05/22/21 18:24 Enoxaparin 40 Mg/0.4 Ml Syringe SUBCUT 40 mg Q24H PILY Administration Famotidine 20 mg 05/22/21 18:00 05/23/21 07:55 Famotidine 20 Mg Tablet PO Not Given BID PILY Vitamin D 1,000 unit 05/23/21 09:00 05/23/21 07:55 Cholecalciferol (Vitamin D3) 1,000 Unit Tablet PO Not Given DAILY PILY PFSH Acute PFSH: Medical History Fibroadenoma of left breast IBS (irritable bowel syndrome) Never actually diagnosed with IBS the symptoms are somewhat consistent No pertinent past medical history Neg. hx: HTN, DM, DVT/PE PCP: Dr. Perez Thyroid nodule Confirmed nodule- benign/stable 09/2015 Surgical History History of appendectomy 1979 History of delivery 1.>06/20/84: Performed in [place], [place] 2.>05/06/87: Performed at [facility] in [place], [place] 3.>08/08/89: Had tubal ligation at time of . Performed at [facility] in [place], [place] History of laparoscopy 1999 - Performed by Dr. Castañeda for evaluation of pelvic pain History of tubal ligation 08/08/89 - Performed at time of section. Family History Grandfather CAD (coronary artery disease) Diabetes Stroke Father CAD (coronary artery disease) Brother CAD (coronary artery disease) Myocardial infarction Stroke Mother Cancer Breast cancer: Dx'd at age 54, unsure if hormone receptive Ovarian cancer: Dx'd at age 29. Family/Other Cancer Maternal uncle: Colon cancer Stroke Uncle and Aunt Grandmother Diabetes Stroke Denies family history of Clotting disorder Dementia Hyperlipidemia Psychiatric illness Chronic kidney disease (CKD) Suicide Anesthesia complication Bleeding disorder Family history of premature coronary artery disease Lung disease Hypertension Social History Smoking and tobacco status: never smoked Alcohol intake: current Alcohol intake frequency: few times a week Substance/Drug Use: never Vitals/I&O/Wt Last Vital Signs Temp 97.6 F 05/23/21 07:26 Pulse 70 05/23/21 07:26 Resp 18 05/23/21 07:26 BP 118/70 05/23/21 07:26 Pulse Ox 96 05/23/21 07:26 05/22/21 05/23/21 05/23/21 22:59 06:59 14:59 Intake Total 1240 / 1240 900 / 2140 Output Total 0 / 0 Balance 1240 / 1240 900 / 2140 Weight last 48 hrs Weight 163 lb Weight 160 lb Weight 160 lb Physical Exam Narrative: GENERAL: The patient is alert and oriented times three. Not in any acute distress. HEENT: No significant pallor, icterus or lymphadenopathy. The pupils are reactant to light. Oral cavity: There are no mucous membrane lesions. Funduscopic examination: The fundus is not visualized NECK: Trachea appears to be central. No masses noted. No JVD or thyromegaly appreciated. No carotid bruit. RESPIRATORY: Chest is symmetrical. No intercostals muscle retraction or any accessory muscle activation. There is no chest wall tenderness. Breath sounds are heard bilaterally. No rales or rhonchi heard. No evidence of any consolidation. BREASTS: Deferred. HEART: The PMI could not be palpated. No palpable precordial events. S1 and S2 are normal. No S3 or S4 heard. No pericardial rub or any click heard. ABDOMEN: No vessel pulsations or distention. No tenderness. No organomegaly appreciated. No abdominal bruit. Bowel sounds are normally heard. : Deferred. RECTAL: Deferred. LYMPHATIC: No lymphadenopathy noted in the neck or groin. EXTREMITIES: No edema or cyanosis. No clubbing. The pulses are symmetrical bilaterally. The radial, femoral, dorsalis pedis and the posterior tibial pulses are palpated and found to be in good volume and amplitude. MUSCULOSKELETAL: No acute joint deformities or swelling SKIN: There are no significant scars or skin rash noted. NEUROPSYCHIATRIC: The patient is alert and oriented x3. Appears to be in a good mood. The higher functions are grossly within normal limits. No tremors or rigidity noted. Data : 05/23/21 05:05 05/23/21 05:05 Other Labs: Laboratory Last Values WBC 5.1 10^3/uL (4.0-10.0) 05/23/21 05:05 RBC 4.02 10^6/uL (4.1-5.3) L 05/23/21 05:05 Hgb 12.3 g/dL (11.5-15.3) 05/23/21 05:05 Hct 36.9 % (37.0-47.0) L 05/23/21 05:05 MCV 91.8 fl (81-99) 05/23/21 05:05 MCH 30.6 pg (28.0-34.0) 05/23/21 05:05 MCHC 33.3 g/dL (30.0-36.0) 05/23/21 05:05 RDW 13.6 % (12.1-15.1) 05/23/21 05:05 Plt Count 248 10^3/cmm (130-400) 05/23/21 05:05 MPV 9.0 fL (7.4-10.4) 05/23/21 05:05 Neut % (Auto) 45.8 % 05/23/21 05:05 Lymph % (Auto) 41.3 % 05/23/21 05:05 Clark % (Auto) 9.0 % 05/23/21 05:05 Eos % (Auto) 3.1 % 05/23/21 05:05 Baso % (Auto) 0.6 % 05/23/21 05:05 Neut # (Auto) 2.33 10^3/uL (1.8-7.7) 05/23/21 05:05 Lymph # (Auto) 2.1 10^3/uL (0.8-4.8) 05/23/21 05:05 Clark # (Auto) 0.5 10^3/uL (0.2-0.9) 05/23/21 05:05 Eos # (Auto) 0.2 10^3/uL (0.0-0.8) 05/23/21 05:05 Baso # (Auto) 0.0 10^3/uL (0.0-0.1) 05/23/21 05:05 Nucleated RBC % (auto) 0 % 05/23/21 05:05 Nucleated RBCs # 0.0 /100WBC 05/23/21 05:05 Sodium 135 mmol/L (136-145) L 05/23/21 05:05 Potassium 4.4 mmol/L (3.5-5.1) 05/23/21 05:05 Chloride 104 mmol/L (98-107) 05/23/21 05:05 Carbon Dioxide 24 mmol/L (22-29) 05/23/21 05:05 Anion Gap 11.4 (5-19) 05/23/21 05:05 BUN 14 mg/dL (6-20) 05/23/21 05:05 Creatinine 0.7 mg/dL (0.5-0.9) 05/23/21 05:05 GFR Calculation 87.2 mL/min (90-130) L 05/23/21 05:05 Glucose 111 mg/dL (65-115) 05/23/21 05:05 Estimat Average Glucose 123 05/22/21 11:19 Hemoglobin A1c 5.9 % (4.0-6.0) 05/22/21 11:19 Calculated Osmolality 281 mOsm/kg (285-295) L 05/23/21 05:05 Calcium 9.1 mg/dL (8.5-10.5) 05/23/21 05:05 Phosphorus 3.8 mg/dL (2.5-4.5) 05/23/21 05:05 Magnesium 2.4 mg/dL (1.7-2.3) H 05/23/21 05:05 Total Bilirubin 0.4 mg/dL (0.15-1.2) 05/23/21 05:05 AST 19 U/L (0-32) 05/23/21 05:05 ALT 11 U/L (0-33) 05/23/21 05:05 Alkaline Phosphatase 63 IU/L (35-105) 05/23/21 05:05 Troponin T Baseline 6 ng/L (0-10) 05/22/21 11:19 Troponin T 120 Minute 6.76 ng/L (0-10) 05/22/21 13:07 Delta Troponin T 0.76 ABS# (0-10) 05/22/21 13:07 Troponin T Hi Sens 6Hr 6.76 ng/L (0-10) 05/22/21 15:47 Troponin T Hi Sens 6Hr Delta 0.76 ng/L (0-12) 05/22/21 15:47 Total Protein 6.5 g/dL (6.6-8.7) L D 05/23/21 05:05 Albumin 4.0 g/dL (3.5-5.2) 05/23/21 05:05 Globulin 2.5 g/dL (1.3-4.6) 05/23/21 05:05 Triglycerides 49 mg/dL (0-150) 05/23/21 05:05 Cholesterol 186 mg/dL (0-200) 05/23/21 05:05 LDL Cholesterol, Calc 117 mg/dL (50-129) 05/23/21 05:05 HDL Cholesterol 59 mg/dL (60-100) L 05/23/21 05:05 LDL/HDL Ratio 1.98 RATIO (0.00-3.22) 05/23/21 05:05 Cholesterol/HDL Ratio 3.15 mg/dL (0.0-4.40) 05/23/21 05:05 Lipase 19 U/L (13-60) 05/22/21 11:19 TSH 2.40 uIU/mL (0.27-4.20) 05/22/21 11:19 EKG 1: My Interpretation: Normal sinus rhythm with some nonspecific ST-T changes in the inferolateral leads. Heart rate of 78 bpm. EKG computer-generated impression: Chest X-Ray 05/22/21 11:08 IMPRESSION: No acute chest abnormality. Echocardiogram ?Normal left ventricular size and systolic function, EF 66 %. ?No regional wall motion abnormalities. ?Thickened mitral valve. Trace mitral valve regurgitation. ?Normal cardiac chamber sizes ?There is no pericardial effusion. ?There are no intracardiac masses. ?No similar previous study is available for comparison. EKG 2: My Interpretation: Normal sinus rhythm with normal ST Ts. EKG computer-generated impression: Chest X-Ray 05/22/21 11:08 IMPRESSION: No acute chest abnormality. A&P Assessment and plan (1) Chest pain: Her chest pain is very atypical. Anxiety/panic attack could be a contributing factor. Her EKG changes are nonspecific. No evidence of myocardial injury based on the blood test. Echocardiogram is unremarkable. However in view of the strong family history of premature atherosclerotic heart disease, for further evaluation of her symptoms, and exercise stress test would be appropriate. May be appropriate to go ahead with an exercise/sestamibi stress sestamibi stress test as an outpatient. If she continues to remain stable, may be discharged home today and perform this procedure as an outpatient as early as possible Status: Acute (2) Palpitations: The palpitations may suggest some form of cardiac arrhythmia causing the s ymptoms. This needs to be further evaluated. She may benefit from an event monitoring. This also can be done as an outpatient. Status: Acute (3) Hypertension: Currently she is normotensive. Apparently she never been told about high blood pressure before. Usually her blood pressure is in the low normal side Status: Acute (4) Anxiety disorder: Patient may have an element of anxiety/panic disorder causing some of the symptoms. This may need to be further evaluated Status: Acute Plan Her cholesterol is in the normal range. Has a normal TSH. Further cardiac work-up can be done as an outpatient. I discussed the current findings and the management options with the patient in detail which she understood well. Thank you for the opportunity to evaluate this patient and make these recommendations Consult Attestations Medical Necessity Statement: If the patient continues remain stable, she may be discharged home from a cardiac standpoint. Coding Level of Care Code Acute Band Builder for Daquang Fwd History Detailed Exam Detailed Medical Decision Making Moderate Complexity Diagnoses Chest pain R07.9 Palpitations R00.2 Hypertension I10 Anxiety disorder F41.9
--- NOTE | 2021-05-23 11:01 | PM.DCS ---
Discharge Providers Date of Admission: 05/22/21 17:06 Date of Discharge: May 23, 2021 Attending Provider at Admission: Giovanni Foote MD Attending Provider at Discharge: Giovanni Foote MD Primary Care Provider: Riccardo Perez MD Diagnoses at Discharge Discharge Diagnosis (1) Chest pain: Status: Acute (2) Palpitations: Status: Acute (3) Hypertension: Status: Acute (4) Anxiety disorder: Status: Acute Reason for Visit Reason for Visit: chest pain/left side pain/high BP/nausea Hospital Course Hospital Course Trang Woodall is a 55 year old female with a past medical history of anxiety, who presents [facility] for chest pain. Patient was admitted to [facility] for chest pain, troponins within normal limits, EKG did show T wave inversions in the inferior leads, echocardiogram no significant wall motion abnormalities, TSH within normal limits, mag within normal limits, A1c within normal limits she continued to have episodes of chest pain during her hospitalization. Cardiology was consulted, recommended medical management, with outpatient stress testing. Patient will be discharged with aspirin, statin, nitro with instructions to return to the emergency room if she were to have recurrent chest pain. Follow-up with cardiology as outpatient for stress testing. Follow-up with Dr. Perez. Physical Exam Const: COMMON NORMALS: no acute distress and patient oriented x3 Resp: COMMON NORMALS: normal respiratory effort, No retractions, No use of accessory muscles and clear to auscultation bilaterally AUSCULTATION: clear to auscultation bilaterally Cardio: COMMON NORMALS: regular rate, regular rhythm, S1 normal heart sound present and S2 normal heart sound present RATE: regular rate RHYTHM: regular rhythm HEART SOUNDS: S1 normal heart sound present and S2 normal heart sound present GI: COMMON NORMALS: Normal to inspection, nondistended, normoactive bowel sounds present, Soft to palpation and non-tender PALPATION: Yes Soft to palpation Extremity: COMMON NORMALS: no pedal edema Neuro: COMMON NORMALS: patient oriented x3 Psych: COMMON NORMALS: mental status grossly normal Discharge Data Studies Completed and Pending Completed Studies During Hospitalization Category Date Time Status XR chest 1V portable [id number] Stat Exams 05/22/21 11:08 Completed CV. echo complete* [id number] Routine Ultrasound 05/22/21 17:53 Completed Pending at discharge Category Date Time Status Complete Blood Count w/Auto AM LABS Lab 05/24/21 04:00 Ordered Complete Blood Count w/Auto AM LABS Lab 05/25/21 04:00 Ordered Comprehensive Metabolic Panel AM LABS Lab 05/24/21 04:00 Ordered Comprehensive Metabolic Panel AM LABS Lab 05/25/21 04:00 Ordered Magnesium AM LABS Lab 05/24/21 04:00 Ordered Magnesium AM LABS Lab 05/25/21 04:00 Ordered Phosphorus AM LABS Lab 05/24/21 04:00 Ordered Phosphorus AM LABS Lab 05/25/21 04:00 Ordered Radiology Impressions Chest X-Ray 05/22/21 11:08 IMPRESSION: No acute chest abnormality. Laboratory Results WBC 5.1 10^3/uL (4.0-10.0) 05/23/21 05:05 RBC 4.02 10^6/uL (4.1-5.3) L 05/23/21 05:05 Hgb 12.3 g/dL (11.5-15.3) 05/23/21 05:05 Hct 36.9 % (37.0-47.0) L 05/23/21 05:05 MCV 91.8 fl (81-99) 05/23/21 05:05 MCH 30.6 pg (28.0-34.0) 05/23/21 05:05 MCHC 33.3 g/dL (30.0-36.0) 05/23/21 05:05 RDW 13.6 % (12.1-15.1) 05/23/21 05:05 Plt Count 248 10^3/cmm (130-400) 05/23/21 05:05 MPV 9.0 fL (7.4-10.4) 05/23/21 05:05 Neut % (Auto) 45.8 % 05/23/21 05:05 Lymph % (Auto) 41.3 % 05/23/21 05:05 Mckean % (Auto) 9.0 % 05/23/21 05:05 Eos % (Auto) 3.1 % 05/23/21 05:05 Baso % (Auto) 0.6 % 05/23/21 05:05 Neut # (Auto) 2.33 10^3/uL (1.8-7.7) 05/23/21 05:05 Lymph # (Auto) 2.1 10^3/uL (0.8-4.8) 05/23/21 05:05 Mckean # (Auto) 0.5 10^3/uL (0.2-0.9) 05/23/21 05:05 Eos # (Auto) 0.2 10^3/uL (0.0-0.8) 05/23/21 05:05 Baso # (Auto) 0.0 10^3/uL (0.0-0.1) 05/23/21 05:05 Nucleated RBC % (auto) 0 % 05/23/21 05:05 Nucleated RBCs # 0.0 /100WBC 05/23/21 05:05 Sodium 135 mmol/L (136-145) L 05/23/21 05:05 Potassium 4.4 mmol/L (3.5-5.1) 05/23/21 05:05 Chloride 104 mmol/L (98-107) 05/23/21 05:05 Carbon Dioxide 24 mmol/L (22-29) 05/23/21 05:05 Anion Gap 11.4 (5-19) 05/23/21 05:05 BUN 14 mg/dL (6-20) 05/23/21 05:05 Creatinine 0.7 mg/dL (0.5-0.9) 05/23/21 05:05 GFR Calculation 87.2 mL/min (90-130) L 05/23/21 05:05 Glucose 111 mg/dL (65-115) 05/23/21 05:05 Estimat Average Glucose 123 05/22/21 11:19 Hemoglobin A1c 5.9 % (4.0-6.0) 05/22/21 11:19 Calculated Osmolality 281 mOsm/kg (285-295) L 05/23/21 05:05 Calcium 9.1 mg/dL (8.5-10.5) 05/23/21 05:05 Phosphorus 3.8 mg/dL (2.5-4.5) 05/23/21 05:05 Magnesium 2.4 mg/dL (1.7-2.3) H 05/23/21 05:05 Total Bilirubin 0.4 mg/dL (0.15-1.2) 05/23/21 05:05 AST 19 U/L (0-32) 05/23/21 05:05 ALT 11 U/L (0-33) 05/23/21 05:05 Alkaline Phosphatase 63 IU/L (35-105) 05/23/21 05:05 Troponin T Baseline 6 ng/L (0-10) 05/22/21 11:19 Troponin T 120 Minute 6.76 ng/L (0-10) 05/22/21 13:07 Delta Troponin T 0.76 ABS# (0-10) 05/22/21 13:07 Troponin T Hi Sens 6Hr 6.76 ng/L (0-10) 05/22/21 15:47 Troponin T Hi Sens 6Hr Delta 0.76 ng/L (0-12) 05/22/21 15:47 Total Protein 6.5 g/dL (6.6-8.7) L D 05/23/21 05:05 Albumin 4.0 g/dL (3.5-5.2) 05/23/21 05:05 Globulin 2.5 g/dL (1.3-4.6) 05/23/21 05:05 Triglycerides 49 mg/dL (0-150) 05/23/21 05:05 Cholesterol 186 mg/dL (0-200) 05/23/21 05:05 LDL Cholesterol, Calc 117 mg/dL (50-129) 05/23/21 05:05 HDL Cholesterol 59 mg/dL (60-100) L 05/23/21 05:05 LDL/HDL Ratio 1.98 RATIO (0.00-3.22) 05/23/21 05:05 Cholesterol/HDL Ratio 3.15 mg/dL (0.0-4.40) 05/23/21 05:05 Lipase 19 U/L (13-60) 05/22/21 11:19 TSH 2.40 uIU/mL (0.27-4.20) 05/22/21 11:19 Vitals Last Vital Signs Temp 97.6 F 05/23/21 07:26 Pulse 70 05/23/21 07:26 Resp 18 05/23/21 07:26 BP 118/70 05/23/21 07:26 Pulse Ox 96 05/23/21 07:26 Discharge Plan Discharge Patient Disposition: Home Condition: Stable Prescriptions: New atorvastatin 40 mg Tablet 40 mg PO BEDTIME 30 Days Qty: 30 0RF aspirin 81 mg Tablet,Delayed Release (Dr/Ec) 81 mg PO DAILY 30 Days Qty: 30 0RF nitroglycerin 0.4 mg Tablet, Sublingual 0.4 mg sublingual Q5M PRN (Reason: Chest Pain) 30 Days Qty: 30 0RF Continued ondansetron HCl 4 mg tablet 4 mg PO Q4H PRN (Reason: Nausea And Vomiting) 0RF alprazolam 0.25 mg tablet 0.25 mg PO BID PRN (Reason: unknown) 0RF biotin 1 tab PO DAILY 0RF magnesium citrate 1 cap PO DAILY 0RF acidophilus-pectin, citrus 100 million cell-10 mg Capsule 1 cap PO DAILY 0RF Vitamin D3 25 mcg (1,000 unit) Capsule 25 mcg PO DAILY 0RF Discharge Orders: Discharge Order (Routine); Ordered 05/23/21 Ordered By: Giovanni Foote Referrals: Marie Zapata MD [Physician] - 7-10 days ([facility] with an appointment[facility] Riccardo Perez MD [Primary Care Provider] - 4-7 days (Please call Tuesday to schedule a follow up appointment) Discharge Activity: Resume usual activity Patient Instructions: Nitroglycerin (By mouth), Aspirin (By mouth), Atorvastatin (By mouth), Chest Pain (GEN), Chest Pain Stoplight, Opioid Safety Activity Restrictions/Additional Instructions: -If you have recurrent chest pain please go to emergency room -Use aspirin, statin as prescribed -If you have chest pain, try nitroglycerin to help alleviate symptoms -Follow-up with Dr. Perez -Follow-up with cardiology Discharge Attestations Time Spent in Discharge Care*: less than 30 min Quality Metrics Clinical Quality Measures [ No reported AMI, CVA or VTE this stay] Coding Level of Care Code Acute Chg FW DC note Diagnoses Chest pain R07.9 Palpitations R00.2 Hypertension I10 Anxiety disorder F41.9
--- NOTE | 2021-05-23 11:04 | PC.NURSE ---
Faxed information to [facility] care clinic to have patient called with appointment time. Faxed extension [phone]
== END 2021-05-23 11:30 | disposition home or self-care (01) ==
LOC: ER 17:06 → MEDSURG 17:31
PROVIDERS: Admitting Provider Family Medicine; Emergency Provider Emergency Medicine; PCP Family Medicine; Visit Provider Family Medicine
DX: R07.9 Chest pain, unspecified (principal); R00.2 Palpitations; I10 Essential (primary) hypertension; F41.9 Anxiety disorder, unspecified; Z79.82 Long term (current) use of aspirin; Z82.49 Family history of ischemic heart disease and other diseases of the circulatory system
CPT/HCPCS: 36415; 71045; 80053; 80061; 83036; 83690; 83735; 84100; 84443; 84484; 85025; 93005; 93306; 96361; 96374; 99285; G0378; G0379; J1650; J2405; J7030

== ENCOUNTER → 2021-09-10 10:05 | Outpatient (BNVA) | payer OTHER, SELFPAY | PROVIDERS: PCP Family Medicine; Visit Provider Nurse Practitioner Women's Health | DX: Z01.419 Encounter for gynecological examination (general) (routine) without abnormal findings (principal); E04.1 Nontoxic single thyroid nodule; Z12.39 Encounter for other screening for malignant neoplasm of breast | CPT/HCPCS: 87624 ==

== ENCOUNTER 2021-10-02 08:10 | Outpatient (CLI) | payer OTHER, SELFPAY ==
--- NOTE | 2021-10-02 08:22 | MM_ITS ---
WS: [id number] Bilateral screening 3D tomosynthesis digital mammogram, 10/02/2021 Clinical Data: Z12.39 - Encounter for other screening for malignant neop... Comparison: 09/04/2020, 04/25/2019, 10/27/2017, 02/11/2015, 02/05/2015, 01/03/2014, 12/12/2012, 9, 10/05/2007, 11/04/2005. Findings: The breast parenchymal pattern shows fibroglandular tissue. No spiculated masses or clustered calcifi cations are seen. There are no secondary signs of carcinoma. MM/[place] [id number] Impression: 1. Negative bilateral mammogram unchanged. 2. Recommend annual screening mammograms. BIRADS: 1-Negative FOLLOW UP: 1 Year Follow-up The CAD brick paving checker was used.
== END 2021-10-02 08:11 | disposition home or self-care (01) ==
LOC: RAD 08:12
PROVIDERS: PCP Family Medicine; Visit Provider Nurse Practitioner Women's Health
DX: Z12.31 Encounter for screening mammogram for malignant neoplasm of breast (principal)
CPT/HCPCS: 77063; 77067

== ENCOUNTER → 2022-08-20 12:44 | Outpatient (BNVA) | payer OTHER, SELFPAY | PROVIDERS: PCP Family Medicine; Visit Provider Clinical Nurse Specialist Adult Health | DX: E04.1 Nontoxic single thyroid nodule (principal); E66.9 Obesity, unspecified | CPT/HCPCS: 80053; 84436; 84443; 84481; 85025 ==

== ENCOUNTER → 2022-09-14 16:00 | Outpatient (BNVA) | payer OTHER, SELFPAY | PROVIDERS: PCP Family Medicine; Visit Provider Nurse Practitioner Women's Health | DX: Z12.4 Encounter for screening for malignant neoplasm of cervix (principal) | CPT/HCPCS: 87624 ==

== ENCOUNTER 2022-11-01 15:24 | Outpatient (CLI) | payer OTHER, SELFPAY ==
--- NOTE | 2022-11-01 15:29 | MM_ITS ---
WS: [id number] BILATERAL 3D TOMOSYNTHESIS DIGITAL SCREENING MAMMOGRAPHY WITH CAD CLINICAL INFORMATION: SCREENING HISTORY: Screening mammogram. No current complaints. COMPARISON: 2021 TECHNIQUE: Bilateral CC and MLO views. FINDINGS: Scattered fibroglandular densities bilaterally. 7 mm ovoid density lower inner LEFT breast near the c hest wall posterior depth. Recommend LEFT diagnostic mammography and ultrasound. RIGHT breast is unchanged. IMPRESSION: MM/[place] [id number] BI-RADS: 0-Incomplete: Need additional imaging evaluation FOLLOW UP: Need Additional Imaging Recommend LEFT diagnostic mammography and ultrasound.
== END 2022-11-01 15:25 | disposition home or self-care (01) ==
LOC: MOBLMAM 15:28
PROVIDERS: PCP Nurse Practitioner Women's Health; Visit Provider Nurse Practitioner Women's Health
DX: Z12.31 Encounter for screening mammogram for malignant neoplasm of breast (principal)
CPT/HCPCS: 77063; 77067

== ENCOUNTER → 2022-12-02 13:21 | Outpatient (BNVA) | payer OTHER, SELFPAY | PROVIDERS: PCP Nurse Practitioner Women's Health; Visit Provider Obstetrics & Gynecology | DX: R87.619 Unspecified abnormal cytological findings in specimens from cervix uteri (principal); Z01.818 Encounter for other preprocedural examination; N95.2 Postmenopausal atrophic vaginitis; N95.1 Menopausal and female climacteric states; N94.10 Unspecified dyspareunia; B97.7 Papillomavirus as the cause of diseases classified elsewhere; R87.810 Cervical high risk human papillomavirus (HPV) DNA test positive | CPT/HCPCS: 81025; 88305 ==

== ENCOUNTER 2022-12-09 07:54 | Outpatient (CLI) | payer OTHER, SELFPAY ==
--- NOTE | 2022-12-09 08:04 | MM_ITS ---
WS: [id number] LEFT 3D TOMOSYNTHESIS DIGITAL MAMMOGRAPHY WITH CAD CLINICAL INFORMATION: R92.8 - Other abnormal and inconclusive findings on diagn... HISTORY: Additional views COMPARISON: 11/01/2022 TECHNIQUE: 3 views of the left breast were obtained. FINDINGS: Scattered fibroglandular densities of the left breast. Previously described ovoid nodule corresponds to a skin lesion today on the mammogram. No additional imaging required. No other suspicious findings . IMPRESSION: MM/[place] [id number] BI-RADS: 2-Benign FOLLOW UP: 1 Year Follow-up Recommend return to annual screening mammography.
== END 2022-12-09 07:55 | disposition home or self-care (01) ==
PROVIDERS: PCP Nurse Practitioner Women's Health; Visit Provider Nurse Practitioner Women's Health
DX: R92.8 Other abnormal and inconclusive findings on diagnostic imaging of breast (principal)
CPT/HCPCS: 77061; G0279

== ENCOUNTER → 2024-03-06 12:47 | Outpatient (BNVA) | payer OTHER, SELFPAY | PROVIDERS: PCP Nurse Practitioner Women's Health; Visit Provider Nurse Practitioner Women's Health | DX: R87.810 Cervical high risk human papillomavirus (HPV) DNA test positive (principal); Z13.820 Encounter for screening for osteoporosis; Z78.0 Asymptomatic menopausal state; R53.83 Other fatigue; Z01.419 Encounter for gynecological examination (general) (routine) without abnormal findings; N87.0 Mild cervical dysplasia; N95.8 Other specified menopausal and perimenopausal disorders | CPT/HCPCS: 82306; 82670; 82728; 87624 ==

== ENCOUNTER 2024-03-19 13:57 | Outpatient (CLI) | payer OTHER, SELFPAY ==
--- NOTE | 2024-03-19 14:00 | XR_ITS ---
WS: [id number] DEXA (DUAL ENERGY X-RAY ABSORPTIOMETRY) Bone mineral density was performed using a [employer] Spine machine. HISTORY: Z13.820 - Encounter for screening for osteoporosis COMPARISON: None available. Lumbar spine BMD (L1-L4): 1.120 g/cm2 T score: -0.5 Z score: 0.0 Total hip BMD: Left: 0.985 g/cm2. T score: -0.2 Z score: 0.3 Right: 0.956 g/cm2. T score: -0.4 Z score: 0.0 10 year probability of a major osteoporotic fracture is 6.9%. XR/XR DEXA axial skeleton* [id number] IMPRESSION: NORMAL BONE MINERAL DENSITY based upon the WHO classification for females.
== END 2024-03-19 13:58 | disposition home or self-care (01) ==
PROVIDERS: PCP Nurse Practitioner Women's Health; Visit Provider Nurse Practitioner Women's Health
DX: Z13.820 Encounter for screening for osteoporosis (principal); Z78.0 Asymptomatic menopausal state
CPT/HCPCS: 77080

== ENCOUNTER 2024-04-02 15:56 | Outpatient (CLI) | payer OTHER, SELFPAY ==
--- NOTE | 2024-04-02 16:12 | MM_ITS ---
WS: [id number] BILATERAL 3D TOMOSYNTHESIS DIGITAL SCREENING MAMMOGRAPHY WITH CAD CLINICAL INFORMATION: SCREEN HISTORY: Screening mammogram. No current complaints. COMPARISON: 2022 TECHNIQUE: Bilateral CC and MLO views. FINDINGS: Scattered fibroglandular densities bilaterally. No suspicious focal mass, asymmetry, calcifications, or architectural distortion. No evidence of malignancy. Few incidental punctate calcifications LEFT breast. MM/MM scr BI tomosynthesis [id number] IMPRESSION: DENSITY: There are scattered areas of fibroglandular density. BI-RADS: 2 - Benign. FOLLOW UP: 1 Year Follow-up Recommend return to annual screening mammography.
== END 2024-04-02 15:57 | disposition home or self-care (01) ==
LOC: RAD 15:57
PROVIDERS: PCP Nurse Practitioner Women's Health; Visit Provider Electrodiagnostic Medicine
DX: Z12.31 Encounter for screening mammogram for malignant neoplasm of breast (principal); R92.323 Mammographic fibroglandular density, bilateral breasts; R92.1 Mammographic calcification found on diagnostic imaging of breast
CPT/HCPCS: 77063; 77067

== ENCOUNTER 2024-06-11 15:31 | Oncology outpatient (recurring) (ONCR) | payer OTHER, SELFPAY ==
[2024-05-15 11:34] LABS: Basophils # 0.1 10^3/uL (0.0-0.1); Basophils % 0.8 %; Eosinophils # 0.2 10^3/uL (0.0-0.8); Eosinophils % 3.5 %; Hematocrit 38.1 % (36-47); Lymphocytes # 3.9 10^3/uL (0.8-4.8); Lymphocytes % 61.9 %; Mean Corpuscular HGB Conc 33.6 g/dL (30-55); Mean Corpuscular Volume 89.2 fl (85-98); Mean Platelet Volume 8.9 fL (7.4-10.4); Monocytes # 0.4 10^3/uL (0.2-0.9); Monocytes % 6.6 %; Neutrophils # 1.68 10^3/uL (1.8-7.7); Nucleated Red Blood Cells % 0 %; Platelet Count 292 10^3/cmm (157-399); Red Blood Count 4.27 10^6/uL (3.85-5.65); Red Cell Distribution Width 13.1 % (12.1-15.1); White Blood Count 6.22 10^3/uL (3.29-11.43)
[2024-05-15 11:48] LABS: LAB Peripheral Smear Sent for Review
[2024-05-16 16:25] LABS: Anti-Nuclear Antibody Screen NEGATIVE (NEGATIVE)
[2024-05-19 10:10] LABS: ANCA Screen NEGATIVE (NEGATIVE)
[2024-05-28 07:22] LABS: CLL Prognostic Panel (BBPL) See Report
[2024-05-29 12:36] LABS: Basophils # 0.1 10^3/uL (0.0-0.1); Eosinophils # 0.3 10^3/uL (0.0-0.8); Eosinophils % 3.8 %; Hematocrit 38.2 % (36-47); Lymphocytes # 4.2 10^3/uL (0.8-4.8); Lymphocytes % 58.7 %; Mean Corpuscular HGB Conc 33.5 g/dL (30-55); Mean Corpuscular Hemoglobin 29.9 pg (27-33); Mean Corpuscular Volume 89.3 fl (85-98); Mean Platelet Volume 9.1 fL (7.4-10.4); Monocytes # 0.6 10^3/uL (0.2-0.9); Monocytes % 7.8 %; Neutrophils # 2.04 10^3/uL (1.8-7.7); Neutrophils % 28.6 %; Nucleated Red Blood Cells % 0 %; Platelet Count 274 10^3/cmm (157-399); Red Blood Count 4.28 10^6/uL (3.85-5.65); White Blood Count 7.15 10^3/uL (3.29-11.43)
[2024-05-29 12:39] LABS: Erythrocyte Sedimentation Rate 9 mm/hr (0-15)
[2024-05-29 12:52] LABS: Alanine Aminotransferase 11 U/L (0-33); Albumin Level 4.5 g/dL (3.5-5.2); Alkaline Phosphatase 73 U/L (35-105); Aspartate Amino Transferase 20 U/L (0-32); Blood Urea Nitrogen 9 mg/dL (6-20); C Reactive Protein 3.6 mg/L (0.0-4.9); Calcium 9.5 mg/dL (8.5-10.5); Carbon Dioxide 26 mmol/L (22-29); Chloride 103 mmol/L (98-107); Creatinine Clr Calc Pharmacy 86.0156; Globulin 3.5 g/dL (1.3-4.6); Glomerular Filtration Rate 86.2 mL/min (90-130); Glucose 85 mg/dL (65-115); Lactate Dehydrogenase 124 U/L (135-214); Osmolality Calculated 288 mOsm/kg (285-295); Sodium 140 mmol/L (136-145); Total Bilirubin 0.2 mg/dL (0.15-1.2)
[2024-05-30 13:27] LABS: Leukemia Profile (BBPL) See Report
== END 2024-06-13 23:59 | disposition home or self-care (01) ==
PROVIDERS: Internal Medicine Medical Oncology; PCP Nurse Practitioner Women's Health; Visit Provider Internal Medicine
DX: Z53.9 Procedure and treatment not carried out, unspecified reason (principal)
CPT/HCPCS: 36415; 80053; 80503; 81263; 82232; 83615; 85025; 85651; 86036; 86038; 86140; 88184; 88185; 88264; 88271; 88367; 88374

== ENCOUNTER 2024-07-16 16:16 | Outpatient (CLI) | payer OTHER, SELFPAY ==
--- NOTE | 2024-07-16 16:29 | XRR_ITS ---
PROCEDURE INFORMATION: Exam: XR Chest Exam date and time: 07/16/2024 4:33 PM Age: 58 years old Clinical indication: Cough; Additional info: Chronic cough TECHNIQUE: Imaging protocol: Radiologic exam of the chest. Views: 2 views. COMPARISON: CR XR chest 1V portable [id number] 05/22/2021 11:21 AM FINDINGS: Lungs: Unremarkable. No consolidation. Pleural spaces: Unremarkable. No pleural effusion. No pneumothorax. Heart/Mediastinum: Unremarkable. No cardiomegaly. Bones/joints: Unremarkable. XR/XR chest 2V* [id number] IMPRESSION: No acute findings.
== END 2024-07-16 16:17 | disposition home or self-care (01) ==
PROVIDERS: PCP Nurse Practitioner Women's Health; Visit Provider Nurse Practitioner Women's Health
DX: R05.3 Chronic cough (principal)
CPT/HCPCS: 71046

== ENCOUNTER 2024-08-29 11:13 | Outpatient (CLI) | payer OTHER, SELFPAY | END 2024-08-29 11:14 | disposition home or self-care (01) | PROVIDERS: PCP Electrodiagnostic Medicine; Visit Provider Specialist | DX: R05.3 Chronic cough (principal) | CPT/HCPCS: 94010 ==

== ENCOUNTER 2024-11-19 11:57 | Oncology outpatient (recurring) (ONCR) | payer OTHER, SELFPAY ==
[2024-11-19 12:14] LABS: Hematocrit 37.4 % (36-47); Hemoglobin 12.90 g/dL (11.27-16.99); Mean Corpuscular HGB Conc 34.5 g/dL (30-55); Mean Corpuscular Hemoglobin 30.3 pg (27-33); Mean Corpuscular Volume 87.8 fl (85-98); Nucleated Red Blood Cells % 0 %; Platelet Count 269 10^3/cmm (157-399); Red Blood Count 4.26 10^6/uL (3.85-5.65); White Blood Count 7.62 10^3/uL (3.29-11.43)
[2024-11-19 12:31] LABS: Alanine Aminotransferase 9 U/L (0-33); Albumin Level 4.5 g/dL (3.5-5.2); Alkaline Phosphatase 68 U/L (35-105); Anion Gap 17.2 (5-19); Aspartate Amino Transferase 18 U/L (0-32); Blood Urea Nitrogen 10 mg/dL (6-20); Calcium 9.7 mg/dL (8.5-10.5); Carbon Dioxide 22 mmol/L (22-29); Chloride 102 mmol/L (98-107); Creatinine Clr Calc Pharmacy 97.0934; Globulin 3.1 g/dL (1.3-4.6); Glucose 102 mg/dL (65-115); Osmolality Calculated 283 mOsm/kg (285-295); Potassium 4.2 mmol/L (3.5-5.1); Sodium 137 mmol/L (136-145); Total Protein 7.6 g/dL (6.6-8.7)
== END 2024-12-14 23:59 | disposition home or self-care (01) ==
PROVIDERS: PCP Electrodiagnostic Medicine; Visit Provider Nurse Practitioner
DX: D72.820 Lymphocytosis (symptomatic) (principal)
CPT/HCPCS: 36415; 80053; 83615; 85025; 85651; 86140